=== PATIENT | male | born 1985 | race Caucasian/White ===

== ENCOUNTER 2018-12-19 05:10 | Emergency (ER) | payer OTHER ==
[~2018-12-19] VITALS: Ht 175.3 cm; Wt 83.9 kg
--- NOTE | 2018-12-19 05:20 | NUR ---
TO BED 14 C/O SI WITH A PLAN TO HANG SELF OR JUMPING IN FRONT OF A MOVING TRAIN. PT DENIES ALCOHOL OR DRUG USE. PT AAOX4 NO ACUTE DISTRESS NOTED, RESP EVEN AND UNLABORED. PT GOWNED, ALL BELONGING REMOVED AND PLACED IN THE LOCKER. PT CALM AND COOPERATIVE AT THIS TIME. URINE SAMPLE COLLECTED AND SENT TO LAB.
--- NOTE | 2018-12-19 05:34 | NUR ---
LAB DRAWN BY DIRECTOR CHANNEL.
[2018-12-19 05:38] LABS: BASOPHILS % (AUTO) 0.3 % (0.0-2.0); EOSINOPHILS % (AUTO) 0.7 % (0.0-6.0); HEMATOCRIT 46 % (39-51); LYMPHOCYTES # (AUTO) 2.2 /CMM (0.8-4.8); LYMPHOCYTES % (AUTO) 27.4 % (20.0-44.0); MEAN CORPUSCULAR HGB CONC 35 g/dl (31.0-36.0); MEAN CORPUSCULAR VOLUME 86 fL (80-96); MONOCYTES # (AUTO) 0.8 /CMM (0.1-1.30); MONOCYTES % (AUTO) 9.8 % (2.0-12.0); NEUTROPHILS # (AUTO) 4.9 /CMM (1.8-8.9); NEUTROPHILS % (AUTO) 61.8 % (43.0-81.0); PLATELET COUNT (AUTO) 181 /CMM (150-450); RED BLOOD CELL COUNT(AUTO) 5.34 MIL/uL (4.5-6.0)
[2018-12-19 05:41] LABS: APPEARANCE,URINE Clear (CLEAR); BILIRUBIN,URINE SMALL (NEGATIVE); BLOOD, URINE Negative Ery/uL (NEGATIVE); COLOR,URINE Yellow (YELLOW); KETONES,URINE Negative (NEGATIVE); LEUKOCYTE ESTERASE ,URINE Negative (NEGATIVE); NITRITE, URINE Negative (NEGATIVE); PROTEIN,URINE Negative (NEGATIVE); UGLUCOSE Negative (NEGATIVE); UROBILINOGEN,URINE 0.2 EU/dL (0.2)
[2018-12-19] MEDS ORDERED: ACETAMINOPHEN 325 MG TABLET ONE (05:42)
[2018-12-19] MEDS ORDERED: IBUPROFEN 600 MG TABLET PO ONE ×2 (05:42→06:00)
[2018-12-19 05:44] LABS: CALCIUM, SERUM 8.5 mg/dL (8.5-10.1); CARBON DIOXIDE 31 mmol/L (21-32); CHLORIDE 102 mmol/L (98-107); CREATININE 1.1 mg/dL (0.6-1.3); GLUCOSE 86 mg/dL (74-106); POTASSIUM 3.8 mmol/L (3.5-5.1); SODIUM SERUM 141 mmol/L (136-145); UREA NITROGEN, BLOOD 13 mg/dL (7-18)
[2018-12-19 05:51] LABS: ALANINE AMINOTRANSFERASE 46 U/L (12-78); ALBUMIN 3.7 g/dL (3.4-5.0); ALKALINE PHOSPHATASE 67 U/L (46-116); ASPARTATE AMINOTRANSFERASE 22 U/L (15-37); BILIRUBIN,DIRECT 0.1 mg/dL (0.0-0.2); BILIRUBIN,TOTAL 0.3 mg/dL (0.2-1.0); TOTAL PROTEIN, SERUM 7.4 g/dL (6.4-8.2)
[2018-12-19 05:57] LABS: ACETAMINOPHEN 0 ug/ml (10-30); ALCOHOL, BLOOD < 3 mg/dL (0-0); SALICYLATE 0.7 mg/dL (2.8-20.0)
[2018-12-19] MEDS ORDERED: ACETAMINOPHEN 325 MG TABLET PO ONE (06:00)
--- NOTE | 2018-12-19 06:06 | NUR ---
PT PROVIDED WITH FOOD AND WATER
--- NOTE | 2018-12-19 06:08 | NUR ---
PER INTAKE AT [facility], NO BED AVAILABLE UNTIL AFTER 0800. WILL FAX OVER CLINICALS PENDING ADMISSION
--- NOTE | 2018-12-19 07:12 | NUR ---
PT ENDORSED TO [facility] FOR [facility]. PT IN BED SLEEPING
--- NOTE | 2018-12-19 07:25 | NUR ---
PATIENT REMAINS CALM AND IN NO DISTRESS. ALL VSS WNL. WILL CONITNUE TO MONITOR
--- NOTE | 2018-12-19 07:40 | NUR ---
BREAKFAST PROVIDED FOR PATIENT
--- NOTE | 2018-12-19 12:22 | NUR ---
[facility]
[2018-12-19 12:32] VITALS: BP 100/55
--- NOTE | 2018-12-19 12:36 | NUR ---
Patient discharged to home in stable condition. Written and verbal after care instructions given. Patient verbalizes understanding of instruction.
== END 2018-12-19 12:36 ==
LOC: ER 05:13
DX: R45.851 Suicidal ideations (principal); F32.9 Major depressive disorder, single episode, unspecified; F17.200 Nicotine dependence, unspecified, uncomplicated
CPT/HCPCS: 36415; 80048; 80076; 80305; 80307; 80329; 81001; 85025; 99285; 99406; G0480; 81000-TC